=== PATIENT | female | born 1960 | race Caucasian/White ===

== ENCOUNTER → 2017-10-22 | Outpatient (CLI) | payer OTHER ==
--- NOTE | ~2017-10-22 | P ---
[facility] [place] [address] PROCEDURE REPORT Name: MELI ALONZO Room #: REG [facility].#: [id number] Admission: 10/22/17 Attend Phys: Keanu Silva MD Discharge: Date of : 60 Report #: [id number] THIS REPORT FOR: //name// CC: Daniel English [employer] Physician staff OUTPATIENT UPPER ENDOSCOPY REPORT BRIEF HISTORY: The patient is a 56-year-old woman well known to me with history of esophageal cancer with previous esophagectomy and esophagogastric anastomosis with difficult stricturing. She has undergone multiple esophageal dilations with very slow progress being made. She also has a jejunostomy tube for feeding. She presents today for continued dilation of her anastomotic stricture. PREOPERATIVE DIAGNOSIS: Esophagogastric anastomotic stricture. POSTOPERATIVE DIAGNOSES: 1. Esophagogastric anastomotic stricture. 2. History of esophageal cancer status post esophagectomy. MEDICATIONS: Deep sedation with propofol per anesthesia. SPECIMEN: None. ESTIMATED BLOOD LOSS: 3 mL. PROCEDURE: EGD with insertion of guidewire and dilation of stricture over wire with Savary dilators. FINDINGS: Prior to sedation, the procedure of upper endoscopy and continued dilation was discussed with the patient as well as potential risks and its complications. She indicates she understands and desires to proceed. DESCRIPTION OF PROCEDURE: With the patient in left decubitus position, Fuji video endoscope was inserted in the cervical esophagus under direct vision without difficulty. Examination of the esophagus revealed a stricture at about 22 cm, which is the level of the esophagogastric anastomosis. She had a smooth and benign appearance. Initially, I thought the stricture was opened up to allow passage of the scope. The tip of the scope could go into the stricture, but it would not pass. We then inserted a Savary guidewire through the stricture and dilated with 33, 36 and 39-Citizen [place] dilators. We took a second look and there was noted to be minimal tearing. The scope was passed easily through the stricture into the stomach, which was examined on end view as well as [facility] [address] [place] [address] PROCEDURE REPORT Name: MELI ALONZO Room #: REG [facility]#: [id number] Admission: 10/22/17 Attend Phys: Keanu Silva MD Discharge: Date of : 60 Report #: [id number] retroflexed views. There is normal appearing gastric mucosa. The pylorus was normal. Duodenal bulb was normal. We then dilated with a 42-Citizen [place] dilator. There was moderate resistance, but very carefully, very slowly the dilator passed through the stricture. The scope was reinserted and superficial mucosal tearing was seen and it was decided to stop for the rest of dilation at that point. The wire was withdrawn. The patient tolerated the procedure well. CONDITION OF THE PATIENT UPON DISCHARGE: Following procedure, the patient was drowsy. She will be discharged home when fully ambulatory. INSTRUCTIONS TO THE PATIENT AND FAMILY AT THE TIME OF DISCHARGE: She was dilated as described. We will have her return for dilation later this week. We will continue to dilate the patient. This is the largest dilator we have been able to use thus far. <ELECTRONICALLY SIGNED> By: Keanu Silva MD 10/23/172015 1223 [id number] Keanu Silva MD /nt
== END | disposition home or self-care (01) ==
LOC: GI 10:47
DX: K22.2 Esophageal obstruction (principal); Z85.01 Personal history of malignant neoplasm of esophagus

== ENCOUNTER → 2017-10-25 | Outpatient (CLI) | payer OTHER ==
[~2017-10-25] VITALS: Ht 167.6 cm; Wt 4.5 kg
[~2017-10-25] MED LIST: AZATHIOPRINE50 MG PO; PRILOSEC 20 MG20 MG PO
--- NOTE | ~2017-10-25 | P ---
[facility] [place] [address] PROCEDURE REPORT Name: CHERIMELI JOHNSON Room #: REG [facility].#: [id number] Admission: 10/25/17 Attend Phys: Keanu Silva MD Discharge: Date of : 60 Report #: [id number] THIS REPORT FOR: //name// CC: [facility] physician/PCP Daniel English DATE OF SERVICE: 10/25/2017 BRIEF HISTORY: The patient is a 56-year-old woman well known to me with history of esophageal carcinoma status post esophagectomy with an esophagogastric anastomosis and subsequent stricture at the anastomotic site. She presents for continued dilation of her anastomotic stricture. We are now trying to dilate her twice weekly to maintain patency. PREOPERATIVE DIAGNOSES: Anastomotic stricture. POSTOPERATIVE DIAGNOSES: 1. Anastomotic stricture. 2. History of esophageal cancer status post esophagectomy. MEDICATIONS: Deep sedation with propofol per anesthesia. SPECIMEN: None. ESTIMATED BLOOD LOSS: 3 mL. PROCEDURE: EGD with insertion of guidewire and dilation of anastomotic stricture over wire. FINDINGS: Prior to propofol sedation, procedure of upper endoscopy and dilation was reviewed with the patient as well as potential risks and its complications. She indicates she understands and desires to proceed. DESCRIPTION OF PROCEDURE: With the patient in left lateral decubitus position, the froolyi video endoscope was inserted in the cervical esophagus under direct vision without difficulty. Examination of this organ through its entire length revealed normal esophageal mucosa down to the anastomotic stricture, which was noted to be at about 22 cm. I could advance the tip of the scope to the mouth of the anastomosis. At a glance, it appeared that the scope would pass, but resistance was encountered and even though it appeared to be patent, the scope would not pass through the stricture. We then inserted the guidewire and withdrew the scope over the wire and dilated as we did on her last occasion with 11, 12, 12.8 and 14 mm dilators. Following dilation, there was some mucosal tearing as expected and we did not dilate any further today. All the dilators [facility] [address] [place] [address] PROCEDURE REPORT Name: MELI ALONZO Room #: REG [facility].#: [id number] Admission: 10/25/17 Attend Phys: Keanu Silva MD Discharge: Date of : 60 Report #: [id number] passed easily. CONDITION OF THE PATIENT UPON DISCHARGE: Following procedure, the patient was drowsy. She will be discharged home when fully ambulatory. INSTRUCTIONS TO THE PATIENT AND FAMILY AT THE TIME OF DISCHARGE: Continued dilation, would like to dilate her early next week. Unfortunately, she narrows down this anastomosis very quickly as we dilated her earlier this week. However, overall, she is improving with regards to oral intake and she is talking about having her J-tube removed. If we continued to have difficulty with the stricture, we may need to consider the patient's self-dilation, but I do not think we are at that point currently. We will continue to dilate the patient aggressively. I do not see that she is on a PPI and I think it would be of her benefit to take a PPI at least on a short term basis. We will have her return hopefully early next week for repeat dilation. By: [id number] [id number] Keanu Silva MD /nt
== END | disposition home or self-care (01) ==
LOC: GI 09:10
DX: K22.2 Esophageal obstruction (principal); K21.9 Gastro-esophageal reflux disease without esophagitis; Z85.01 Personal history of malignant neoplasm of esophagus; Z90.49 Acquired absence of other specified parts of digestive tract; Z87.891 Personal history of nicotine dependence; Z90.710 Acquired absence of both cervix and uterus; Z98.890 Other specified postprocedural states; Z79.899 Other long term (current) drug therapy
CPT/HCPCS: 62110; 62900

== ENCOUNTER → 2017-11-16 | Outpatient (CLI) | payer OTHER ==
--- NOTE | ~2017-11-16 | P ---
[facility] [place] [address] PROCEDURE REPORT Name: CHERIMELI JOHNSON Room #: REG [facility]#: [id number] Admission: 11/16/17 Attend Phys: Keanu Silva MD Discharge: Date of : 60 Report #: [id number] THIS REPORT FOR: //name// CC: Daniel English Physician staff BRIEF HISTORY: The patient is a 56-year-old woman well known to me with a history of esophageal cancer status post esophagectomy with persistent anastomotic stricture for repeat dilation. PREOPERATIVE DIAGNOSIS: Anastomotic stricture with history of esophageal cancer. POSTOPERATIVE DIAGNOSES: 1. Anastomotic stricture. 2. History of esophageal cancer. MEDICATIONS: Deep sedation with propofol per anesthesia. SPECIMEN: None. ESTIMATED BLOOD LOSS: 3 mL. PROCEDURE: EGD with Valle dilation. FINDINGS: Prior to propofol sedation, procedure of upper endoscopy and dilation was reviewed with the patient as well as potential risks and its complications. She indicates she understands and desires to proceed. DESCRIPTION OF PROCEDURE: With the patient in left lateral decubitus position, the Fuji video endoscope was inserted in the cervical esophagus under direct vision without difficulty. Examination of this organ revealed the anastomotic stricture is about 22 cm from the incisors. It had a smooth and benign appearance. No ulcers or erosions were seen. Very carefully, the scope was passed through the anastomosis with minimal difficulty. The stomach was examined on end view as well as retroflexed views. No mass lesions or ulcers were seen. The pylorus was normal. Duodenal bulb and postbulbar duodenal sweep were normal. The scope was drawn and then we dilated with 38, 40 and 42 [place] dilators. A second look endoscopy revealed minimal trauma at the stricture from dilation. We then dilated with 44 and 46-[place]an and a second look revealed little more trauma, but minimal tearing from dilation and then we finished up the procedure with dilation with a 48 [place] Valle dilator. The patient tolerated the procedure well. [address] [address] PROCEDURE REPORT Name: CHERIMELI Room #: REG [facility]#: [id number] Admission: 11/16/17 Attend Phys: Keanu Silva MD Discharge: Date of : 60 Report #: [id number] CONDITION OF THE PATIENT UPON DISCHARGE: Following the procedure the patient was drowsy and arousable. She will be discharged home when fully ambulatory. INSTRUCTIONS TO THE PATIENT AND FAMILY AT THE TIME OF DISCHARGE: The patient making progress with dilation. She was last dilated a week ago and the stricture remained fairly patent. We will have her return in about 2 weeks for repeat dilation or sooner if needed. By: [id number] Keanu Silva MD /nt
== END | disposition home or self-care (01) ==
LOC: GI 08:31
DX: K22.2 Esophageal obstruction (principal); Z85.01 Personal history of malignant neoplasm of esophagus; Z90.49 Acquired absence of other specified parts of digestive tract; Z79.899 Other long term (current) drug therapy; Z98.890 Other specified postprocedural states